=== PATIENT | female | born 1955 | race Caucasian/White ===

== ENCOUNTER 2016-11-23 11:48 | Day surgery (SDC) | payer MEDICARE ==
[2016-11-21 12:52] VITALS: BMI 24.1
[~2016-11-23 11:48] MED LIST: LACTATED RINGERS 1,000 ML IV SCH; LIDOCAINE 1% 20 ML VIAL (10MG/ML) FOR IV START INTRADERMA PRN
[2016-11-23 12:05] VITALS: RESP 16; TEMP 97.3
[2016-11-23] MEDS ORDERED: PROPOFOL 10 MG/ML 20 ML VIAL IV ONE (12:32)
--- NOTE | 2016-11-23 12:49 | P.PCN ---
Date of Procedure: 11/23/16 Preoperative Diagnosis: Postoperative Diagnosis: Procedure(s) Performed: BRIEF HISTORY: Patient is a 61-year-old pleasant white female, scheduled for an elective colonoscopy as a part of evaluation of prior history of colon polyps. Last colonoscopy was 5 years ago. PROCEDURE PERFORMED: Colonoscopy. PREOPERATIVE DIAGNOSIS: History of colon polyps. IV sedation per Anesthesia. PROCEDURE: After informed consent was obtained, the patient, was brought into the endoscopy unit. IV sedation was administered by Anesthesia under continuous monitoring. Digital rectal examination was normal. Initially the Olympus CF- 160 flexible video colonoscope was then inserted in the rectum, gradually advanced into the cecum with [id number] difficulty. Careful examination was performed as the scope was gradually being withdrawn. Ileocecal valve and the appendiceal orifice were visualized and appeared normal. Prep was excellent. Mucosa of the cecum, ascending colon, transverse colon, descending colon, sigmoid colon, and rectum appeared normal. Retroflexion was performed in the rectum and small internal hemorrhoids were seen. The patient tolerated the procedure well. IMPRESSION: Normal-appearing colon from rectum to cecum with no evidence of colorectal neoplasia. Small internal hemorrhoids. RECOMMENDATIONS: Findings of this examination were discussed with the patient as well as a family. She was advised to have a repeat surveillance colonoscopy in 5 years because of the prior history of colon polyps. Implants: Indications for Procedure: Operative Findings: Description of Procedure:
[2016-11-23 13:06] VITALS: BP 102/67; PULSE 52
== END 2016-11-23 13:23 | disposition home or self-care (01) ==
LOC: ORWHC2ENDO 11:48
PROVIDERS: ATTEND Internal Medicine Gastroenterology
DX: Z12.11 Encounter for screening for malignant neoplasm of colon (principal); K64.8 Other hemorrhoids; Z86.010 Personal history of colon polyps; K21.9 Gastro-esophageal reflux disease without esophagitis; Z79.899 Other long term (current) drug therapy; Z88.5 Allergy status to narcotic agent; Z88.8 Allergy status to other drugs, medicaments and biological substances; Z91.041 Radiographic dye allergy status
CPT/HCPCS: J2704; G0105